=== PATIENT | male | born 1950 | race Caucasian/White ===

== ENCOUNTER 2024-05-10 15:10 | Emergency (ER) | payer MEDICARE, BC, SELFPAY ==
[2024-05-10 15:26] VITALS: BP 153/102
[2024-05-10 15:54] LABS: % Basophils 0.6 % (0-2); % Immature Granulocytes 0.5 % (0-0.5); % Lymphocytes 16.3 % (20.5-51.1); % Monocytes 8.6 % (1.7-9.3); Absolute Eosinophils 0.1 10^3/uL (0-0.7); Absolute Monocytes 0.5 10^3/uL (0.1-0.6); Absolute Neutrophils 4.6 10^3/uL (1.4-6.5); Hematocrit 47.3 % (39.0-52.0); Hemoglobin 17.1 g/dL (13.0-18.0); Mean Corp Hgb Conc. 36.2 g/dL (33.0-37.0); Mean Corpuscular Volume 88.6 fL (80.0-94.0); Mean Platelet Volume 9.3 fL (7.4-10.4); Nucleated Red Blood Cells % 0 % (-); Platelet Count 245 10^3/uL (130-400); Red Blood Cell Count 5.34 10^6/uL (4.70-6.10); Red Cell Dist. Width 11.9 % (11.5-14.5); White Blood Cell Count 6.3 10^3/uL (4.8-10.8)
[2024-05-10 16:08] LABS: ALT (SGPT) 16 U/L (0-50); AST (SGOT) 29 U/L (17-59); Albumin 4.7 g/dl (3.5-5.0); Alkaline Phosphatase 95 U/L (38-126); Blood Urea Nitrogen 15 mg/dl (9-20); Calcium 9.9 mg/dl (8.4-10.2); Carbon Dioxide 27 mmol/L (22-30); Chloride 96 mmol/L (98-107); Glucose 113 mg/dl (70-99); Potassium 4.7 mmol/L (3.5-5.1); Sodium 131 mmol/L (135-145); Total Bilirubin 0.6 mg/dl (0.2-1.3); Total Protein 7.3 g/dl (6.3-8.2); eGFR > 60.00
[2024-05-10 17:22] VITALS: BP 150/87
--- NOTE | 2024-05-10 18:03 | ED.GENMED ---
History of Present Illness
General
Chief Complaint: Heart Rate Problem
Time Seen by Provider: 05/10/24 17:39
History of Present Illness
History of Present Illness:
73-year-old male presents the emergency department for evaluation of a transient period of tachycardia that occurred while at his doctor's office [place] this morning. He had a an EKG taken in that office showing a narrow complex tachycardia
suggestive of SVT, provides the EKG hardcopy to me for review. Symptoms have resolved on arrival. He states this has happened frequently for the past 40+ years once to twice yearly at most. 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
Review of Systems
Review of Systems
Allergies reviewed?: Yes
All Other Systems: ROS reviewed and negative except as documented in HPI and ROS
Phy Exam
Physical Exam
Physical Exam:
GEN: Well appearing, NAD, WDWN
HEENT: Oral mucosa moist, no scleral icterus
Cardiac: Regular rate and rhythm no murmurs
Lung: No respiratory distress, no tachypnea
MSK: No gross deformity or injuries
Skin: Good color, no pallor or jaundice, no rashes
Neuro: AO x3, moves all extremities freely
Psych: Calm, cooperative
Course
Orders/Labs/Results
Orders:
Orders
05/10/24 15:12
ECG [Electrocardiogram (*1)] Urgent
Reason for Study: Bradycardia / Tachycardia
05/10/24 15:13
EKG- Treatment ONCE
05/10/24 15:47
Complete Blood Count/With Diff Urgent
Comprehensive Metabolic Panel Urgent
Abnormal Lab Results
05/10/24
15:47
MCH 32.0 H pg
(27.0-31.0)
Absolute Lymphs (auto) 1.0 L 10^3/uL
(1.2-3.4)
Lymphocytes % 16.3 L %
(20.5-51.1)
Sodium 131 L mmol/L
(135-145)
Chloride 96 L mmol/L
(98-107)
Glucose 113 H mg/dl
(70-99)
05/10/24 15:47
05/10/24 15:47
Vital Signs
Initial and Last Documented VS:
Initial Vital Signs
Temp Pulse Resp BP Pulse Ox
98.4 F 105 19 153/102 99
05/10/24 15:26 05/10/24 15:26 05/10/24 15:26 05/10/24 15:26 05/10/24 15:26
Last Documented Vital Signs
Temp Pulse Resp BP Pulse Ox
98.4 F 79 27 150/87 96
05/10/24 15:26 05/10/24 18:00 05/10/24 18:00 05/10/24 17:22 05/10/24 18:25
MDM/Problems Addressed
MDM/Problems Addressed:
Patient's EKG in the emergency department is unremarkable however PCP EKG clearly indicates an SVT. I discussed the options for starting the patient on low-dose metoprolol however he declines this at this time given the infrequency of the events.
Recommend outpatient electrophysiology evaluation
*Critical Care Note
Total Time (30-74mins, 75-104mins- exclusive of procedures): Not Applicable
ED Attending Note
-
Portions of this chart may have been created with voice recognition software.� Occasional wrong word or��sound alike� substitutions may have occurred due to the inherent limitations of voice recognition software.
Discharge Plan
Departure
Patient Disposition: Home (Routine Discharge)
Date of Disposition: 05/10/24
Time of Disposition: 18:03
Patient with high blood pressure during this ER visit?: Yes
Discharge Problem:
Paroxysmal supraventricular tachycardia
Instructions: Supraventricular tachycardia (SVT)
Referrals:
Farhad Treviño, DO [Family Provider] -
Khurram Gongora MD [Active] -
Interventions
Interventions:
*Risk Screen - Suicide Last Done: 05/10/24 18:24
*General Assessment Last Done: 05/10/24 15:28
*Neglect/Abuse Screening Last Done: 05/10/24 18:25
*ED COVID-19 Vaccine History Last Done: 05/10/24 18:28
*Nursing Disposition Last Done: 05/10/24 18:28
ED- Cardiac Assessment Last Done: 05/10/24 18:21
ED- Pulmonary Assessment Last Done: 05/10/24 18:25
Discharge Date and Time
Discharge Date/Time: 05/10/24 18:28
Print Language: [id number]
== END 2024-05-10 18:28 | disposition home or self-care (01) ==
LOC: EMR 15:10
PROVIDERS: EMERGENCY PHYSICIAN Emergency Medicine; FAMILY PHYSICIAN Family Medicine
DX: I47.19 Other supraventricular tachycardia (principal); R03.0 Elevated blood-pressure reading, without diagnosis of hypertension
CPT/HCPCS: 99283; 80053; 85025; 93005